=== PATIENT | female | born 1990 | race Caucasian/White ===

== ENCOUNTER 2019-04-03 01:33 | Inpatient (IN) | payer OTHER ==
[2019-04-03] MEDS: LACTATED RINGER'S 1,000 ML IV ×2 (02:43→05:12)
[2019-04-03] MEDS: TERBUTALINE 1 MG/ML INJ SC (02:45)
[2019-04-03] MEDS ORDERED: LACTATED RINGER'S 1,000 ML IV (08:05)
[2019-04-03] MEDS ORDERED: BETAMET NA PHOS/AC(6 MG/ML) 2 ML INJ SYG IM (08:30)
[2019-04-03] MEDS: PRENATAL VITAMIN PO (09:00)
[2019-04-03 11:01] LABS: ADD UMIC YES; UR ASCORBIC ACID NEGATIVE (NEGATIVE); UR BACTERIA FEW /HPF (NONE SEEN); UR BILIRUBIN (Dip) NEGATIVE (NEGATIVE); UR BLOOD (Dip) 2+ mg/dL (NEGATIVE); UR CLARITY CLEAR (CLEAR); UR COLOR STRAW (YELLOW); UR GLUCOSE (Dip) NEGATIVE (NEGATIVE); UR KETONES (Dip) NEGATIVE (NEGATIVE); UR LEUKOCYTE ESTERASE (Dip) NEGATIVE Leu/ul (NEGATIVE); UR NITRITE (Dip) NEGATIVE (NEGATIVE); UR RBC 1 /HPF (0-5); UR SPECIFIC GRAVITY (Dip) 1.005 (1.003-1.030); UR TOTAL PROTEIN (Dip) NEGATIVE (NEGATIVE); UR UROBILINOGEN (Dip) NEGATIVE (NEGATIVE); UR WBC 0 /HPF (0-5)
[2019-04-03 11:17] LABS: ADD MAN DIFF? NO
[2019-04-03 11:30] LABS: WHITE BLOOD COUNT 7.3 10^3/ul (4.8-10.8)
[2019-04-03 11:30] LABS: BASOPHILS % 0.3 % (0.0-2.0); EOSINOPHILS # 0.1 10^3/ul (0.0-0.5); EOSINOPHILS % 0.8 % (0.0-7.0); HEMATOCRIT 35.7 % (37.0-47.0); HEMOGLOBIN 11.5 g/dl (12.0-16.0); LYMPHOCYTES # 1.3 10^3/ul (0.8-2.9); LYMPHOCYTES % 17.7 % (15.0-51.0); MEAN CORPUSCULAR HEMOGLOBIN 29.1 pg (29.0-33.0); MEAN CORPUSCULAR HGB CONC 32.2 g/dl (32.0-37.0); MEAN CORPUSCULAR VOLUME 90.4 fl (82.0-101.0); MEAN PLATELET VOLUME 9.7 fl (7.4-10.4); MONOCYTE # 0.5 10^3/ul (0.3-0.9); MONOCYTES % 6.3 % (0.0-11.0); NEUTROPHIL # 5.4 10^3/ul (1.6-7.5); NEUTROPHILS % 74.6 % (39.0-77.0); PLATELET COUNT 210 10^3/UL (140-415); RED BLOOD COUNT 3.95 10^6/ul (4.20-5.40); RED CELL DISTRIBUTION WIDTH 12.4 % (11.5-14.5)
[2019-04-03 11:38] LABS: ALANINE AMINOTRANSFERASE 21 IU/L (13-69); ALBUMIN 3.2 g/dl (3.3-4.9); ALKALINE PHOSPHATASE 154 IU/L (42-121); ANION GAP 8 (5-13); ASPARTATE AMINO TRANSFERASE 22 IU/L (15-46); BILIRUBIN,INDIRECT 0.5 mg/dl (0-1.1); BILIRUBIN,TOTAL 0.5 mg/dl (0.2-1.3); BLOOD UREA NITROGEN 4 mg/dl (7-20); CALCIUM 9.1 mg/dl (8.4-10.2); CARBON DIOXIDE 24 mmol/L (21-31); CHLORIDE 109 mmol/L (97-110); CREATININE 0.43 mg/dl (0.44-1.00); Estimated GFR > 60 mL/min (>60); GLUCOSE 72 mg/dl (70-220); POTASSIUM 3.6 mmol/L (3.5-5.1); SODIUM 141 mmol/L (135-144); TOTAL PROTEIN 6.1 g/dl (6.1-8.1)
[2019-04-03 11:43] LABS: INR 0.96; PROTIME 12.9 Sec (11.9-14.9)
[2019-04-03 11:44] LABS: PARTIAL THROMBOPLASTIN TIME 28.5 Sec (23.0-35.0)
[2019-04-03 14:57] LABS: RAPID PLASMA REAGIN NONREACTIVE (NR)
== END 2019-04-03 12:00 | disposition left against medical advice (07) | DRG 831 ==
LOC: OBT 01:33 → L-D 01:36 → OBT 04:47 → L-D 04:47
DX: O46.8X3 Other antepartum hemorrhage, third trimester (principal); O60.03 Preterm labor without delivery, third trimester; Z3A.33 33 weeks gestation of pregnancy
CPT/HCPCS: 36415; 76815; 76817; 76818; 80053; 81001; 85025; 85610; 85730; 86592; 86850; 86900; 86901; 87086; 96360; 96361; 96372

== ENCOUNTER 2019-05-16 20:36 | Inpatient (IN) | payer OTHER ==
[2019-05-16] MEDS ORDERED: LACTATED RINGER'S 1,000 ML IV (20:43)
[2019-05-16] MEDS ORDERED: AMPICILLIN 2 GM/NS (PMX) 100 ML (20:54)
[2019-05-16] MEDS: AMPICILLIN 2 GM/NS (PMX) 100 ML IV (20:58)
[2019-05-16] MEDS: LACTATED RINGER'S 1,000 ML IV (20:58)
[2019-05-16] MEDS ORDERED: LIDOCAINE 1% (MPF) 30 ML INJ INJ (21:00)
[2019-05-16] MEDS ORDERED: OXYTOCIN 30 UNITS/LR 500 ML IV ×2 (21:00→22:30)
[2019-05-16] MEDS ORDERED: CARBOPROST 250 MCG INJ IM ×2 (21:00→22:30)
[2019-05-16] MEDS: METHYLERGONOVINE 0.2 MG INJ IM (22:01)
[2019-05-16] MEDS: MISOPROSTOL 200 MCG TAB PR (22:02)
[2019-05-16] MEDS: OXYTOCIN 30 UNITS/LR 500 ML IV ×3 (22:05→22:07)
[2019-05-16] MEDS: LACTATED RINGER'S 1,000 ML IV* (22:06)
[2019-05-16] MEDS: IBUPROFEN 600 MG TAB PO (22:21)
[2019-05-16] MEDS ORDERED: ACETAMINOPHEN 325 MG TAB PO ×2 (22:30)
[2019-05-16] MEDS ORDERED: DIBUCAINE 1% 30 GM OINT TOP (22:30)
[2019-05-16] MEDS ORDERED: MAGNESIUM HYDROXIDE 30ML CUP PO (22:30)
[2019-05-16] MEDS ORDERED: MISOPROSTOL 200 MCG TAB PR (22:30)
[2019-05-16] MEDS ORDERED: METHYLERGONOVINE 0.2 MG INJ IM (22:30)
[2019-05-16] MEDS ORDERED: ONDANSETRON 4 MG INJ IV (22:30)
[2019-05-16] MEDS: MINERAL OIL LIGHT 10 ML VIAL TOP (23:35)
[2019-05-17] MEDS: BENZOCAINE 20% 56 ML SPRAY TOP (00:21)
[2019-05-17] MEDS: WITCH HAZEL/GLYCERIN PAD PR (00:22)
[2019-05-17] MEDS: AMPICILLIN 1 GM/NS (PMX) 50 ML IV ×2 (01:00→05:00)
[2019-05-17] MEDS: LACTATED RINGER'S 1,000 ML IV ×3 (02:25→20:43)
[2019-05-17] MEDS: IBUPROFEN 600 MG TAB PO ×2 (05:28→23:48)
[2019-05-17] MEDS: LACTATED RINGER'S 1,000 ML IV* ×3 (06:06→22:06)
[2019-05-17] MEDS: LANOLIN HPA 1 PKT TOP (17:28)
[2019-05-17] MEDS: SENNA/DOCUSATE NA (8.6MG/50MG) TAB PO (21:17)
[2019-05-18] MEDS: IBUPROFEN 600 MG TAB PO ×2 (12:12→18:01)
== END 2019-05-18 21:35 | disposition home or self-care (01) | DRG 807 ==
LOC: OBT 20:36 → L-D 20:36 → OBT 20:39 → L-D 20:39 → PP1 23:39
PROC: 10E0XZZ Delivery of Products of Conception, External Approach (ICD-10-PCS; principal; 2019-05-16)
DX: O80 Encounter for full-term uncomplicated delivery (principal); Z37.0 Single live birth; Z3A.39 39 weeks gestation of pregnancy
CPT/HCPCS: 80307; 85025; 85610; 85730; 86592; 86850; 86900; 86901; 87340